=== PATIENT | female | born 1985 | race Caucasian/White ===

== ENCOUNTER 2018-09-14 01:43 | Emergency (ER) | payer SELFPAY ==
[2018-09-14 02:02] VITALS: TEMP 98; BMI 44.8
[2018-09-14 02:34] LABS: BASO % 0.6 % (0-2.0); EOS % 1.4 % (0-4.5); HEMATOCRIT 31.2 % (32.4-45.2); HEMOGLOBIN 9.6 GM/dL (10.7-15.3); LYMPH % 23.1 % (8-40); MCHC 30.8 g/dl (32.0-36.0); MEAN CELL VOLUME 71.4 fl (80-96); MONO % 6.7 % (3.8-10.2); NEUT % 68.2 % (42.8-82.8); PLATELET COUNT 426 K/MM3 (134-434); RBC 4.37 M/mm3 (3.60-5.2); WHITE BLOOD COUNT 10.9 K/mm3 (4.0-10.0)
[2018-09-14] MEDS ORDERED: SODIUM CHLORIDE 1,000 ML IV STA ×2 (02:38→04:51)
[2018-09-14] MEDS ORDERED: ONDANSETRON 4 MG/2 ML VIAL IVPUSH ONE (02:38)
[2018-09-14] MEDS ORDERED: MORPHINE SULFATE 2 MG/ML VIAL ONE (02:39)
[2018-09-14] MEDS ORDERED: MORPHINE SULFATE 2 MG/ML VIAL IVPUSH ONE (02:39)
[2018-09-14] MEDS ORDERED: ONDANSETRON 4 MG/2 ML VIAL ONE (02:40)
[2018-09-14 02:57] LABS: ALBUMIN 3.5 g/dl (3.4-5.0); BILIRUBIN,TOTAL 0.2 mg/dL (0.2-1); BLOOD UREA NITROGEN 16.3 mg/dL (7-18); CALCIUM 9.1 mg/dL (8.5-10.1); CREATININE 0.9 mg/dL (0.55-1.3); TOT PROT 7.8 g/dl (6.4-8.2)
[2018-09-14 02:58] LABS: EPI CELLS 3.2 /HPF (0-5/HPF); HYALINE CASTS 3 /lpf (0-8); PH,URINE 5.5 (5.0-8.0); URINE APPEARANCE CLOUDY; URINE BACTERIA 21.7 /hpf (NEGATIVE); URINE BILIRUBIN NEGATIVE (NEGATIVE); URINE COLOR YELLOW; URINE GLUCOSE (UA) NEGATIVE (NEGATIVE); URINE KETONE TRACE (NEGATIVE); URINE LEUK ESTERASE NEGATIVE (NEGATIVE); URINE NITRITE NEGATIVE (NEGATIVE); URINE PROTEIN 1+ (NEGATIVE); URINE RBC 674 /hpf (0-4); URINE UROBILINOGEN 0.2 mg/dL (0.2-1.0); URINE WBC 6 /hpf (0-5)
[2018-09-14] MEDS ORDERED: KETOROLAC TROMETHAMINE 30 MG/1 ML VIAL ONE (04:28)
[2018-09-14] MEDS ORDERED: KETOROLAC TROMETHAMINE 30 MG/1 ML VIAL IVPUSH ONE (04:29)
--- NOTE | 2018-09-14 04:48 | PDOC ---
Attending Attestation - Resident Resident Name: French Luz - ED Attending Attestation I have performed the following: I have examined & evaluated the patient, The case was reviewed & discussed with the resident, I agree w/resident's findings & plan, Exceptions are as noted - HPI HPI: 09/14/18 04:42 33 F with h/o kidney stones presenting to ED with L flank pain x 4 days. Pt states that the pain radiates from her L flank to her LLQ. Denies F/C. States pain is similar to her prior kidney stones. Pt has been taking motrin at home with good relief, but vomited tonight. - Physicial Exam PE: 09/14/18 04:48 GENERAL: Awake, alert, and fully oriented, in no acute distress. HEAD: No signs of trauma EYES: PERRLA, EOMI, sclera anicteric, conjunctiva clear ENT: Auricles normal inspection, hearing grossly normal, nares patent, oropharynx clear without exudates. Moist mucosa NECK: Nontender, no stepoffs, Normal ROM, supple, no lymphadenopathy, JVD, or masses LUNGS: Breath sounds equal, clear to auscultation bilaterally. No wheezes, and no crackles HEART: Regular rate and rhythm, normal S1 and S2, no murmurs, rubs or gallops ABDOMEN: +LLQ and L CVAT, Soft, normoactive bowel sounds. No guarding, no rebound. No masses EXTREMITIES: Normal range of motion, no edema. No clubbing or cyanosis. No cords, erythema, or tenderness NEUROLOGICAL: Cranial nerves II through XII intact. 5/5 strength and sensation in all extremities, Normal speech, normal gait, normal cerebellar function SKIN: Warm, Dry, normal turgor, no rashes or lesions noted. - Medical Decision Making 09/14/18 04:49 33 F w left flank pain. Likely kidney stone. - labs, UA - CTAP - IVF, analgesia 09/14/18 05:[address] shows two 4mm stones in distal L ureter Pt reassessed - pain is now well controlled Pt tolerating PO Discussed results of CT with pt - understands need to f/u with her OB regarding her endometrial hyperplasia Pt is well appearing, with normal vitals. Clinically stable for DC at this time. I discussed the physical exam findings, ancillary test results and final diagnoses with the patient. I answered all of the patient's questions. The patient was satisfied with the care received and felt comfortable with the discharge plan and treatment plan. The patient agrees to follow up with the primary care physician within 24-72 hours. Discharge Disposition - Diagnosis Kidney calculus - Discharge Dispostion Disposition: HOME Last Admission D/C Date: 04/05/15 - Referrals Referrals: Vladimir Davis MD [Staff Physician] - Ophelia Gomez MD [Staff Physician] - - Patient Instructions Printed Discharge Instructions: DI for Kidney Stones Additional Instructions: You have two kidney stones on the left side. Drink plenty of fluids and take the Naproxen as prescribed for pain. If you experience worsening pain, fevers, severe nausea or vomiting, or any other concerning symptoms, return to the ER immediately. Otherwise, follow up with a urologist for further evaluation. Call the number provided to make an appointment with our urologist, Dr. Davis. You also need to follow up with an regulator pin inserter for evaluation of your uterus. The CT scan today showed thickening of your uterus, which in rare cases can be a sign of cancer. - Post Discharge Activity
[2018-09-14 05:11] LABS: ANISOCYTOSIS 1+; PLATELET ESTIMATE SLT INCREASE
[2018-09-14 05:14] VITALS: BP 132/67; PULSE 86
--- NOTE | 2018-09-14 05:31 | PDOC ---
History of Present Illness - General Chief Complaint: Nausea/Vomiting Stated Complaint: KIDNEY PAIN/VOMITING Time Seen by Provider: 09/14/18 02:53 History Source: Patient Exam Limitations: No Limitations - History of Present Illness Initial Comments: 33 yo female pmh of kidney stones presents to ED with 4 days of left flank pain and 1 episode of NB/NB vomiting tonight. Pt states it feels like last kidney stone, denies F/C, pain on urination, blood in urine. Pt has outpatient urologist to f/u with. Pt took motrin at home with some relief of pain. Denies CP, SOB, back pain, abdominal pain Past History - Past Medical History Allergies/Adverse Reactions: Allergies Allergy/AdvReac Type Severity Reaction Status Date / Time acetaminophen [From Tylenol] Allergy Verified 09/14/18 01:59 shrimp Allergy Severe Uncoded 09/14/18 01:59 Home Medications: Ambulatory Orders Naproxen 500 mg PO BID PRN #14 tablet 09/14/18 COPD: No GI Disorders: Yes (gastritis) Kidney Stones: Yes - Surgical History Cholecystectomy: Yes - Reproductive History Is Patient Now?: No Therapeutic (s) & number: No - Immunization History Immunization Up to Date: Yes - Suicide/Smoking/Psychosocial Hx Smoking History: Never smoked Have you smoked in the past 12 months: No Number of Cigarettes Smoked Daily: 1 Information on smoking cessation initiated: No Hx Alcohol Use: No Drug/Substance Use Hx: No Substance Use Type: None Review of Systems - Review of Systems Constitutional: No: Chills, Fever Respiratory: No: Shortness of Breath Cardiac (ROS): No: Chest Pain, Edema, Palpitations ABD/GI: No: Constipated, Diarrhea, Nausea (resolved), Vomiting : Yes: Flank Pain. No: Burning, Dysuria, Frequency, Hematuria, Incontinence Musculoskeletal: No: Back Pain Neurological: No: Numbness, Tingling, Ataxia *Physical Exam - Vital Signs Last Vital Signs Temp Pulse Resp BP Pulse Ox 98.0 F 86 20 132/67 98 09/14/18 01:45 09/14/18 05:13 09/14/18 05:13 09/14/18 05:13 09/14/18 05:13 - Physical Exam General Appearance: Yes: Nourished, Appropriately Dressed. No: Apparent Distress HEENT: positive: EOMI Neck: positive: Supple. negative: Carotid bruit Respiratory/Chest: positive: Lungs Clear, Normal Breath Sounds. negative: Accessory Muscle Use, Rapid RR, Crackles, Rales, Rhonchi, Wheezing Cardiovascular: positive: Regular Rhythm, Regular Rate, S1, S2. negative: Edema , JVD, Murmur Vascular Pulses: Dorsalis-Pedis (R): 4+, Doralis-Pedis (L): 4+ Gastrointestinal/Abdominal: positive: Flat, Soft. negative: Pulsatile Mass, Distended, Guarding, Rebound, Tenderness Musculoskeletal: positive: CVA Tenderness (left) Extremity: positive: Normal Capillary Refill, Normal Inspection, Normal Range of Motion Integumentary: positive: Normal Color, Dry, Warm Neurologic: positive: Fully Oriented, Alert, Normal Mood/Affect, Normal Response ED Treatment Course - LABORATORY CBC & Chemistry Diagram: 09/14/18 02:28 09/14/18 02:28 - ADDITIONAL ORDERS Additional order review: Laboratory Results 09/14/18 09/14/18 09/14/18 02:35 02:35 02:28 Sodium 140 Potassium 4.0 Chloride 108 H Carbon Dioxide 25 Anion Gap 8 BUN 16.3 Creatinine 0.9 Est GFR (CKD-EPI)AfAm 98.06 Est GFR (CKD-EPI)NonAf 84.60 Random Glucose 116 H Calcium 9.1 Total Bilirubin 0.2 AST 25 ALT 30 Alkaline Phosphatase 106 Total Protein 7.8 Albumin 3.5 Lipase 93 Urine Color Yellow Urine Appearance Cloudy Urine pH 5.5 Ur Specific [place] 1.025 Urine Protein 1+ H Urine Glucose (UA) Negative Urine Ketones Trace H Urine Blood 3+ H Urine Nitrite Negative Urine Bilirubin Negative Urine Urobilinogen 0.2 Ur Leukocyte Esterase Negative Urine WBC (Auto) 6 Urine RBC (Auto) 674 Urine Casts (Auto) 3 U Epithel Cells (Auto) 3.2 Urine Bacteria (Auto) 21.7 Urine HCG, Qual Negative 09/14/18 02:28 RBC 4.37 MCV 71.4 L MCHC 30.8 L RDW 20.0 H MPV 8.0 Neutrophils % 68.2 Lymphocytes % 23.1 Monocytes % 6.7 Eosinophils % 1.4 D Basophils % 0.6 - RADIOLOGY Radiology Studies Ordered: Category Date Time Status SPIRAL- RENAL-STONE CT [CT] Stat CT Scan 09/14/18 03:10 Taken - Medications Given in the ED: ED Medications Discontinued Medications Generic Name Dose Route Start Last Admin Trade Name Milesq PRN Reason Stop Dose Admin Sodium Chloride 1,000 mls @ 1,000 mls/hr 09/14/18 02:38 09/14/18 02:44 Normal Saline - IV 09/14/18 03:37 1,000 mls/hr ASDIR STA Administration Ketorolac Tromethamine 30 mg 09/14/18 04:29 09/14/18 04:32 Toradol Injection - IVPUSH 09/14/18 04:30 30 mg ONCE ONE Administration Morphine Sulfate 2 mg 09/14/18 02:39 09/14/18 02:44 Morphine Sulfate IVPUSH 09/14/18 02:40 2 mg ONCE ONE Administration Ondansetron HCl 4 mg 09/14/18 02:38 09/14/18 02:44 Zofran Injection IVPUSH 09/14/18 02:39 4 mg ONCE ONE Administration Medical Decision Making - Medical Decision Making 59 yo male no sig pmh, presents to the ED for 1 week of non productive cough and chills. Pt states his woke him up at night because he was coughing to much and took him to the ER. 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 Denies recent travel, sick contacts, nasal congestion, sinus pain, ALLISON, ear pain, sore throat, SOB, CP, abdominal pain. Pt tried Nyquill last few nights with some relief however last night did not. vitals wnl DDX INLT: renal stone, pyelo, UTI 2 mg morphine for pain control 1L NS Zofran Labs, UA, urine culture, urine preg U preg negative, will send for spiral CT CT shows 2 4 mm stones L distal ureter without hydro Pt given toradol for pain which helped pt has no s/s of systemic infection, no hydro. Pt safe for DC home with urology f/u and PCP f/u Strict DC instructions given *DC/Admit/Observation/Transfer Diagnosis at time of Disposition: Kidney calculus - Discharge Dispostion Disposition: HOME - Prescriptions Prescriptions: Naproxen 500 mg PO BID PRN #14 tablet PRN Reason: Pain - Referrals Referrals: Ophelia Gomez MD [Staff Physician] - Vladimir Davis MD [Staff Physician] - - Patient Instructions Printed Discharge Instructions: DI for Kidney Stones Additional Instructions: You have two kidney stones on the left side. Drink plenty of fluids and take the Naproxen as prescribed for pain. If you experience worsening pain, fevers, severe nausea or vomiting, or any other concerning symptoms, return to the ER immediately. Otherwise, follow up with a urologist for further evaluation. Call the number provided to make an appointment with our urologist, Dr. Davis. You also need to follow up with an space studies faculty member for evaluation of your uterus. The CT scan today showed thickening of your uterus, which in rare cases can be a sign of cancer. - Post Discharge Activity
== END 2018-09-14 05:41 | disposition home or self-care (01) ==
LOC: JER 01:43
PROC: 3E0333Z Introduction of Anti-inflammatory into Peripheral Vein, Percutaneous Approach (ICD-10-PCS; principal; 2018-09-14)
PROC: 3E033GC Introduction of Other Therapeutic Substance into Peripheral Vein, Percutaneous Approach (ICD-10-PCS; 2018-09-14)
PROC: 3E0337Z Introduction of Electrolytic and Water Balance Substance into Peripheral Vein, Percutaneous Approach (ICD-10-PCS; 2018-09-14)
DX: N20.0 Calculus of kidney (principal)
CPT/HCPCS: 36415; 74176-TC; 80053; 81003; 83690; 84703; 85025; 87077; 87086; 96361; 96374; 96375; 99283-25; J7030